=== PATIENT | female | born 1965 | race Hispanic/Latino ===

== ENCOUNTER 2019-08-08 07:31 | Day surgery (SDC) | payer BC ==
[2019-08-04 17:50] LABS: BASOPHILS % (AUTO) 0.6 % (0.0-5.0); EOSINOPHILS % (AUTO) 2.1 % (0.0-8.0); HEMATOCRIT 41.1 % (36-48); LYMPHOCYTES % (AUTO) 30.8 % (21.0-51.0); MEAN CORPUSCULAR HEMOGLOBIN 31.2 pg (27.0-33.0); MEAN CORPUSCULAR HGB CONC 33.6 g/dL (32.0-36.0); MONOCYTES % (AUTO) 8.2 % (3.0-13.0); PLATELET COUNT (AUTO) 298 K/uL (130-400); RED BLOOD CELL COUNT(AUTO) 4.42 MIL/uL (4.00-5.50); RED CELL DISTRIBUTION WIDTH 12.8 % (11.0-15.5); WHITE BLOOD COUNT (AUTO) 10.2 K/uL (4.8-10.8)
[2019-08-04 17:57] LABS: CREATININE 0.6 mg/dL (0.5-1.5); POTASSIUM 3.7 mmol/L (3.5-5.1)
--- NOTE | 2019-08-07 10:30 | NUR ---
clarification called dr coyle office and spoke to asim to clarify surgery to be done. surgery is correct on h&p and surgery schedule
[2019-08-07 11:03] VITALS: BP 140/79
[2019-08-08] VITALS (19 sets, daily range): BP systolic 131–158; BP diastolic 69–99
[~2019-08-08] VITALS: Ht 160 cm; Wt 106.7 kg
[~2019-08-08 07:31] MED LIST: CEFAZOLIN SODIUM 1 GM VIAL IVP SCH; ESCI5TAB10 PO; LACTATED RINGERS 1000ML 1,000 ML IV SCH
[2019-08-08] MEDS ORDERED: CEFAZOLIN SODIUM 1 GM VIAL ONE (10:01)
[2019-08-08] MEDS ORDERED: LIDOCAINE PF 2% 5ML ABBOJECT ONE ×2 (11:48→13:18)
[2019-08-08] MEDS ORDERED: PROPOFOL 10 MG/ML 20ML VIAL IV ONE (11:50)
[2019-08-08] MEDS ORDERED: ROCURONIUM 10MG/1ML SYR 10 MG/ML ML ONE (11:50)
[2019-08-08] MEDS ORDERED: FENTANYL CITRATE PF 50 MCG/1 ML 2ML VIAL ONE (11:51)
[2019-08-08] MEDS ORDERED: MIDAZOLAM HCL 1 MG/ML 2ML VIAL ONE (11:52)
[2019-08-08] MEDS ORDERED: ROPIVACAINE 0.5% 5MG/ML 30ML IJ ONE (11:54)
[2019-08-08] MEDS ORDERED: SUCCINYLCHOLINE CHLORIDE 20 MG/ML 10 ML VIAL ONE (11:54)
[2019-08-08] MEDS ORDERED: NEOSTIGMINE 5MG/5ML SYR IV ONE (12:58)
--- NOTE | 2019-08-08 15:30 | NUR ---
DISCHARGE INSTRUCTIONS PROVIDED TO PATIENT AND PATIENT'S SPOUSE. PROVIDED HANDOUTS ON INCISION CARE/DRESSING CARE. INSTRUCTED NOT TO REMOVE DRESSING/DO NOT WET DRESSING. INSTRUCTED ON SIGNS/SYMPTOMS TO REPORT TO DOCTOR. ALL QUESTIONS ANSWERED AND CONCERNS ADDRESSED. PRESCRIPTIONS PROVIDED TO PATIENT'S SPOUSE.
--- NOTE | 2019-08-08 16:35 | NUR ---
PATIENT DISCHARGED FROM FACILITY VIA WHEELCHAIR. PATIENT ASSISTED INTO PRIVATE VEHICLE DRIVEN BY SON. PATIENT WAS PROVIDED WITH CRUTCHES UPON DISCHARGE.
== END 2019-08-08 16:35 | disposition home or self-care (01) ==
LOC: DAH 07:31
PROVIDERS: ATTEND Orthopaedic Surgery Sports Medicine
DX: S86.011A Strain of right Achilles tendon, initial encounter (principal); G89.29 Other chronic pain; J42 Unspecified chronic bronchitis; M19.90 Unspecified osteoarthritis, unspecified site; Z90.49 Acquired absence of other specified parts of digestive tract; Z90.710 Acquired absence of both cervix and uterus; X58.XXXA Exposure to other specified factors, initial encounter; Y93.89 Activity, other specified; Y92.89 Other specified places as the place of occurrence of the external cause; Y99.8 Other external cause status
CPT/HCPCS: 27650; 36415; 71045; 80048; 85025; 93005; A4213; A4215; A4221; A4222; A4223; A4450; A4606; A4649; A4663; A4930; A5120; A6223; A6260; J0330; J0690; J2001 ×2; J2250; J2704; J2710; J2795; J3010; J7030; J7120; U0003